=== PATIENT | male | born 1945 | race Caucasian/White ===

== ENCOUNTER → 2017-02-15 | Outpatient (CLI) | payer MEDICARE, OTHER ==
[~2017-02-15] MED LIST: ASPIRIN 81MG TA81 MG PO; CRESTOR20 MG PO; IMDUR 30MG. TAB30 MG PO; LODINE400 MG PO; LOSARTAN POTASS25 MG PO; OMEGA-31000 MG PO; TAMSULOSIN HYD0.4 MG PO; TOPROL XL 50MG50 MG PO
[2017-02-15 14:07] LABS: BUN 19 mg/dL (7-18)
[2017-02-15 14:09] LABS: GFR (ESTIMATED) 50 ML/MIN (>60); PROSTATE-SPECIFIC AG SCREEEN < 0.1 ng/mL (0.0-4.0)
== END ==
LOC: CARL-LAB 08:49
PROVIDERS: Nurse Practitioner Family
DX: E11.9 Type 2 diabetes mellitus without complications (principal); E53.8 Deficiency of other specified B group vitamins; E78.00 Pure hypercholesterolemia, unspecified; I10 Essential (primary) hypertension; C61 Malignant neoplasm of prostate; Z12.5 Encounter for screening for malignant neoplasm of prostate; Z00.00 Encounter for general adult medical examination without abnormal findings
CPT/HCPCS: G0103